=== PATIENT | male | born 1995 | race Caucasian/White ===

== ENCOUNTER 2016-12-11 15:47 | Emergency (ER) | payer OTHER ==
--- NOTE | 2016-12-11 16:26 | EDPHY ---
H & P Time Seen by Provider: 12/11/16 16:26 HPI/ROS: CHIEF COMPLAINT: Bilateral testicular pain HISTORY OF PRESENT ILLNESS: Was hiking and around 2:00 p.m. developed bilateral testicular pain. Does not radiate. Feels worse with palpation or movement. Symptoms moderate. REVIEW OF SYSTEMS: Eye: no change in vision ENT: no sore throat Cardiac: no chest pain or syncope Pulmonary: no cough or SOB Abdomen: No vomiting or abdominal pain Musculoskeletal: no back pain Skin: no rash Neuro: no headache Constitutional: no fever : no urinary symptoms A comprehensive 10 point review of systems is otherwise negative aside from elements mentioned in the history of present illness. 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 General Appearance: Alert and conversant, cooperative. Eyes: No scleral icterus. ENT, Mouth: Normal mucous membranes. Respiratory: Normal respiratory effort, breath sounds equal, lungs are clear to auscultation. Cardiovascular: Regular rate and rhythm. Gastrointestinal: Abdomen is soft and non tender. No hernia noted. Male external normal with no testicular swelling. Vertical lie. Cremasteric reflex is present on both sides. No external skin changes Neurological: Alert and oriented x3. Normally conversant. Face symmetric, normal movement and sensation in all extremities. Skin: Warm and dry, no rashes. Musculoskeletal: No peripheral edema and no joint swelling. Psychiatric: Not agitated. Emergency Department course/MDM: No NSAIDs because of recent ulcer. Oral acetaminophen 1 g, testicular ultrasound, urinalysis. Discussed with Anderson from Urology at [facility], asked for recommendation; he recommends that we start doxycycline and check GC and chlamydia. He will see him in the office this week. Discussed with patient and consented. Smoking Status: Never smoked Constitutional: Initial Vital Signs Temperature (C) 36.2 C 12/11/16 16:00 Heart Rate 60 12/11/16 16:00 Blood Pressure 104/56 L 12/11/16 16:00 O2 Sat (%) 98 12/11/16 16:00 O2 Delivery Mode Room Air Allergies/Adverse Reactions: No Known Allergies Allergy (Unverified 12/11/16 19:11) Home Medications: Medication Instructions Recorded Doxycycline Hyclate [Doxycycline] 100 mg PO BID #20 cap 12/11/16 Medical Decision Making - Diagnostics Imaging Results: Imaging Impressions Testicular Ultrasound 12/11/16 16:32 Impression: 1. Diminished color flow Doppler pattern left testicle. This could represent early signs of torsion. 2. Normal-appearing right testicle. Findings discussed with Dilip Hedrick M.D. at 17:37 hour, 12/11/2016. Testicular US shows: R normal, L minimal flow peripherally only per Finer [id number]. Differential Diagnosis: Differential considered including but not limited to hernia, torsion, epididymitis, orchitis, UTI. - Data Points Laboratory Results: 12/11/16 12/11/16 17:30 16:30 Urine Color YELLOW Urine Appearance CLEAR Urine pH 7.0 (5.0-7.5) Ur Specific [place] 1.018 (1.002-1.030) Urine Protein NEGATIVE (NEGATIVE) Urine Ketones NEGATIVE (NEGATIVE) Urine Blood NEGATIVE (NEGATIVE) Urine Nitrate NEGATIVE (NEGATIVE) Urine Bilirubin NEGATIVE (NEGATIVE) Urine Urobilinogen NEGATIVE EU EU (0.2-1.0) Ur Leukocyte Esterase NEGATIVE (NEGATIVE) Urine Glucose NEGATIVE (NEGATIVE) C.trachomatis RNA (TMA) Pending N.gonorrhoeae RNA (TMA) Pending Medications Given: Discontinued Medications Acetaminophen (Tylenol) 1,000 mg PO EDNOW ONE Stop: 12/11/16 16:33 Last Admin: 12/11/16 16:41 Dose: 1,000 mg Doxycycline Hyclate (Vibramycin 100 Mg Prepack#2) 1 btl TAKEHOME EDNOW ONE Stop: 12/11/16 19:10 Last Admin: 12/11/16 19:25 Dose: 1 btl Departure - Departure Disposition: Home, Routine, Self-Care Clinical Impression: Testicular pain Condition: Good Instructions: Testicle Pain (ED) Referrals: Jonathan Barron MD [Medical Doctor] - As per Instructions (Follow-up this week with Urology in the office.) Prescriptions: Doxycycline Hyclate [Doxycycline] 100 mg PO BID #20 cap
[2016-12-11] MEDS ORDERED: ACETAMINOPHEN 500 MG TAB PO ONE (16:32)
[2016-12-11 18:30] LABS: COLOR YELLOW; LEUKOCYTE ESTERASE,URINE NEGATIVE (NEGATIVE); NITRITE,URINE NEGATIVE (NEGATIVE)
[2016-12-11] MEDS ORDERED: DOXYCYCLINE 100 MG PREPACK#2 BTL TAKEHOME ONE (19:09)
[2016-12-11 19:27] VITALS: BP 110/61; PULSE 70; RESP 16; TEMP 97.9; O2SAT 97
[2016-12-12 13:02] LABS: CHLAMYDIA AMPLIFICATION GENPRB NEGATIVE (NEGATIVE)
== END 2016-12-11 19:26 | disposition home or self-care (01) ==
DX: N50.812 Left testicular pain (principal)